=== PATIENT | male | born 1965 | race Caucasian/White ===

== ENCOUNTER → 2018-01-01 | Outpatient (CLI) | payer BC | END | disposition home or self-care (01) | LOC: CFH 07:01 | PROVIDERS: ATTEND Internal Medicine Cardiovascular Disease | DX: R07.89 Other chest pain (principal); Z87.891 Personal history of nicotine dependence | CPT/HCPCS: 78452; 93017; 93306; A9502 ==

== ENCOUNTER → 2018-04-23 | Outpatient (CLI) | payer BC ==
[~2018-04-23] MED LIST: ASPI81TA45 PO; ATOR40TA78 PO; METO25TA91 PO
== END | disposition home or self-care (01) ==
LOC: RAD 13:36
PROVIDERS: ATTEND Internal Medicine Critical Care Medicine
DX: R06.02 Shortness of breath (principal)
CPT/HCPCS: 71250